=== PATIENT | male | born 1990 | race African-American/Black ===

== ENCOUNTER 2023-05-20 05:29 | Emergency (ER) | payer OTHER ==
[~2023-05-20] VITALS: Ht 167.6 cm; Wt 95.3 kg
[2023-05-20 05:30] VITALS: BP 132/85; TEMP 98.3; O2SAT 98
== END 2023-05-20 06:25 ==
LOC: ER 05:49
DX: Z20.822 Contact with and (suspected) exposure to COVID-19 (principal)
CPT/HCPCS: 99283; 87426; C9803